=== PATIENT | female | born 1935 | race Caucasian/White ===

== ENCOUNTER 2022-05-06 15:23 | Outpatient (CLI) | payer MEDICARE, MEDICAID, SELFPAY ==
[2022-05-06 17:20] LABS: Chloride* 104 mmol/L (96-114); Sodium* 144 mmol/L (135-149)
[2022-05-06 17:21] LABS: Potassium* 4.3 mmol/L (3.6-5.1)
[2022-05-06 17:23] LABS: Carbon Dioxide* 27 mmol/L (20-32); Cholesterol* 170 mg/dL (90-199); Creatinine* 0.9 mg/dL (0.5-1.5); Estimated Glomerular Filt Rate 63 ml/min
[2022-05-06 17:24] LABS: Blood Urea Nitrogen* 18 mg/dL (7-30); Glucose* 109 mg/dL (60-115); HDL Cholesterol* 57 mg/dL (>=50); LDL Cholesterol Calculated 62 mg/dL (<100); Triglycerides* 254 mg/dL (40-149)
[2022-05-06 18:24] LABS: Calcium* 9.8 mg/dL (8.4-10.6)
== END 2022-05-06 15:24 | disposition home or self-care (01) ==
PROVIDERS: PCP Internal Medicine; Visit Provider Internal Medicine
DX: Z00.00 Encounter for general adult medical examination without abnormal findings (principal); E78.5 Hyperlipidemia, unspecified; I10 Essential (primary) hypertension; I25.10 Atherosclerotic heart disease of native coronary artery without angina pectoris; R74.8 Abnormal levels of other serum enzymes
CPT/HCPCS: 80048; 80061

== ENCOUNTER 2024-02-21 15:34 | Outpatient (CLI) | payer BC, SELFPAY | END 2024-02-21 15:35 | disposition home or self-care (01) | PROVIDERS: PCP Internal Medicine; Visit Provider Internal Medicine | DX: I10 Essential (primary) hypertension (principal); E78.5 Hyperlipidemia, unspecified; R74.8 Abnormal levels of other serum enzymes | CPT/HCPCS: 80048; 80061 ==

== ENCOUNTER 2025-02-21 15:38 | Outpatient (CLI) | payer MEDICARE, SELFPAY | END 2025-02-21 15:39 | disposition home or self-care (01) | PROVIDERS: PCP Internal Medicine; Visit Provider Internal Medicine | DX: E78.5 Hyperlipidemia, unspecified (principal); I10 Essential (primary) hypertension | CPT/HCPCS: 80053; 80061 ==